=== PATIENT | male | born 1950 | race Caucasian/White ===

== ENCOUNTER → 2017-02-17 | Day surgery (SDC) | payer MEDICARE, OTHER ==
[~2017-02-17] MED LIST: Lactated Ringers 1,000 ML IV SCH; Propofol 200 MG/20 ML SDV IV ONE
[2017-02-17 10:59] VITALS: BP 130/74
--- NOTE | 2017-02-20 09:12 | OR ---
DATE OF OPERATION: 02/17/2017 PREOPERATIVE DIAGNOSIS: HISTORY OF POLYPS. POSTOPERATIVE DIAGNOSIS: HISTORY OF POLYPS. SURGEON: Ryan Jaimes MD PROCEDURE: FULL-LENGTH COLONOSCOPY WITH POLYP REMOVAL X6. 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 COMPLICATIONS: None. SPECIMEN: Tubular adenomas x6. FINDINGS: 1. Full-length colonoscopy. 2. Six separate tubular adenomas, please see op report. RECOMMENDATIONS: Follow up colonoscopy 1 year. INDICATIONS: The patient has a history of polyp removal. His last colonoscopy was in last 3 to 5 years. He was suppose to have a followup. DESCRIPTION OF PROCEDURE: The patient was prepped and draped, placed in left lateral decubitus position. A lubricated Olympus colonoscope was inserted and easily advanced to the cecum. Direct visualization of the ileocecal valve and appendiceal orifice was accomplished. Bowel prep was adequate. Upon withdrawal of the scope, the patient did have 2 small tubular adenomas, one in the cecal pouch, one in the very proximal ascending colon. Both these were removed with cold forceps biopsy x3 in their entirety. The rest of the ascending colon appeared benign. In the proximal transverse colon, the patient had 3 separate tubular adenomas. All stalks were removed with snare, and suctioned into polyp traps #1, #2, and #3 respectively. These were all within the first 10 cm of the transverse colon. The rest of the mid and distal transverse colon appeared benign as did the descending colon. The sigmoid colon for the most part was benign. There were no signs of any vascular abnormalities, colitis, significant diverticula, or bleeding areas. The patient did have another small tubular adenoma in the mid sigmoid colon, removed with a snare and suctioned into polyp trap #4 without difficulty. The rest of the sigmoid had no polyps, masses, ulcerations, or bleeding sites. Rectal vault appeared benign. Retroflexion of the scope in the rectum showed some perianal hemorrhoids disease, but no other masses or lesions. Air was then suctioned. The scope was removed without complication. LISA/PATRIZIA /[id number]
== END ==
LOC: CC.SDS 08:31
PROVIDERS: ATTEND Family Medicine
DX: Z12.11 Encounter for screening for malignant neoplasm of colon (principal); D12.0 Benign neoplasm of cecum; D12.3 Benign neoplasm of transverse colon; I10 Essential (primary) hypertension; F32.9 Major depressive disorder, single episode, unspecified; K21.9 Gastro-esophageal reflux disease without esophagitis; Z98.890 Other specified postprocedural states; Z87.891 Personal history of nicotine dependence; Z79.82 Long term (current) use of aspirin; Z79.899 Other long term (current) drug therapy; G35 Multiple sclerosis
CPT/HCPCS: 45380; J2704; J7120; 00810; 88305

== ENCOUNTER → 2018-02-16 | Day surgery (SDC) | payer MEDICARE, OTHER ==
[2018-02-16 11:40] VITALS: BP 128/72
--- NOTE | 2018-02-19 07:23 | OR ---
DATE OF OPERATION: 02/16/2018 PREOPERATIVE DIAGNOSIS: FOLLOW UP POLYPS. POSTOPERATIVE DIAGNOSIS: FOLLOW UP POLYPS. SURGEON: Ryan Jaimes MD PROCEDURE: FULL-LENGTH COLONOSCOPY WITH SNARE POLYPECTOMY X2. 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 COMPLICATIONS: None. SPECIMEN: Tubular adenomas x2. FINDINGS: 1. Full-length colonoscopy. 2. Mild sigmoid diverticulosis. 3. Tubular adenoma x2, both less than a half centimeter. RECOMMENDATIONS: Follow up colonoscopy in 3 years. INDICATIONS: The patient had 6 polyps removed last year and he is due for a followup in that regard. DESCRIPTION OF PROCEDURE: The patient was prepped and draped, placed in the left lateral decubitus position. A lubricated Olympus colonoscope was inserted and easily advanced to the cecum. Direct visualization of the ileocecal valve and appendiceal orifice was accomplished. The bowel prep was marginal. There was some solid stool throughout the colon, but most areas could be visualized thoroughly. Upon withdrawal cecum, ascending, and transverse colon were completely benign. On the left side of the colon, I could find no signs of any inflammatory changes, vascular abnormalities, or signs of bleeding. In the mid sigmoid colon around 40 to 45 cm, the patient had a smaller tubular adenoma, inflammatory in nature. Removed with a snare and suctioned with a polyp trap. 1. He does have scattered diverticula throughout the sigmoid area, mild-to- moderate in severity. The rectal vault also showed a flat villous adenoma, approximately 0.5 cm in size, removed it with snare and suctioned it with polyp trap. 2. Retroflexion scope in the rectum showed no perianal lesions. Air was suctioned and scope was removed without complication. LISA/PATRIZIA /[id number]
== END ==
LOC: CC.SDS 09:09
PROVIDERS: ATTEND Family Medicine
DX: D12.5 Benign neoplasm of sigmoid colon (principal); D12.8 Benign neoplasm of rectum; K57.30 Diverticulosis of large intestine without perforation or abscess without bleeding; Z86.010 Personal history of colon polyps; Z79.899 Other long term (current) drug therapy
CPT/HCPCS: J2704

== ENCOUNTER → 2021-02-05 | Day surgery (SDC) | payer MEDICARE, OTHER ==
[~2021-02-05] MED LIST changes: -Propofol 200 MG/20 ML SDV IV ONE
[2021-02-05 08:44] VITALS: BP 123/72; PULSE 63
--- NOTE | 2021-02-05 14:42 | OR ---
DATE OF OPERATION: 02/05/2021 PREOPERATIVE DIAGNOSIS: HISTORY OF POLYPS. POSTOPERATIVE DIAGNOSIS: HISTORY OF POLYPS. SURGEON: Ryan Jaimes MD PROCEDURE: SURVEILLANCE COLONOSCOPY WITH FORCEPS POLYP REMOVAL X2. ANESTHESIA: MAC. COMPLICATIONS: None. SPECIMEN: Tubular adenomas x2. FINDINGS: 1. Full-length colonoscopy. 2. Mild diverticulosis, sigmoid colon. 3. Tubular adenomas x2, each 0.5 cm or less. RECOMMENDATIONS: Followup colonoscopy in 5 years. INDICATIONS: The patient has prior colonoscopies with polyps removed in the past. He is due for a surveillance scope. DESCRIPTION OF PROCEDURE: The patient was prepped and draped, placed in the left lateral decubitus position. A lubricated Olympus colonoscope was inserted and with ease advanced to the cecum. Direct visualization of ileocecal valve and appendiceal orifice was accomplished. The bowel prep was adequate. Upon withdrawal of the scope, the cecum, ascending and transverse colons were benign. Right at the splenic flexure, the patient had a small flat tubular adenoma removed with a forceps biopsy in its entirety. Descending colon was unremarkable. The patient does have scattered diverticula in the sigmoid area. At around 40 cm, he had a slightly larger sessile polyp, benign in appearance, which was removed with forceps biopsy x3 in its entirety. The rest of the colon was otherwise benign. The rectal vault was unremarkable. Retroflexion showed no perianal lesions. Air was suctioned. Scope removed. LISA/PATRIZIA /[id number]
== END ==
LOC: CC.SDS 06:44
PROVIDERS: ATTEND Family Medicine
DX: Z12.11 Encounter for screening for malignant neoplasm of colon (principal); D12.5 Benign neoplasm of sigmoid colon; D12.3 Benign neoplasm of transverse colon; K57.30 Diverticulosis of large intestine without perforation or abscess without bleeding; I12.9 Hypertensive chronic kidney disease with stage 1 through stage 4 chronic kidney disease, or unspecified chronic kidney disease; N18.2 Chronic kidney disease, stage 2 (mild); G35 Multiple sclerosis; M10.9 Gout, unspecified; F17.210 Nicotine dependence, cigarettes, uncomplicated; Z01.812 Encounter for preprocedural laboratory examination; Z20.822 Contact with and (suspected) exposure to COVID-19; Z79.82 Long term (current) use of aspirin; Z79.899 Other long term (current) drug therapy; Z86.010 Personal history of colon polyps; Z85.46 Personal history of malignant neoplasm of prostate
CPT/HCPCS: J7120